=== PATIENT | male | born 1980 | race Caucasian/White ===

== ENCOUNTER 2021-08-06 22:25 | Emergency (ER) | payer OTHER ==
[2021-08-07] MEDS ORDERED: NORCO 5-325 TA1 EACH PO (01:47)
== END 2021-08-07 02:00 | disposition home or self-care (01) ==
LOC: FER 22:25
DX: S63.297A Dislocation of distal interphalangeal joint of left little finger, initial encounter (principal); X58.XXXA Exposure to other specified factors, initial encounter; Y93.67 Activity, basketball; Y92.009 Unspecified place in unspecified non-institutional (private) residence as the place of occurrence of the external cause
CPT/HCPCS: 73120; 73130; 96372